=== PATIENT | male | born 1980 | race Caucasian/White ===

== ENCOUNTER 2023-05-04 13:03 | Emergency (ER) | payer OTHER, SELFPAY ==
[2023-05-04 13:04] VITALS: BP 174/113; PULSE 92; RESP 19; TEMP 36.6; O2SAT 98
--- NOTE | 2023-05-04 13:16 | ED.GENADULT ---
HPI - General Adult General Chief complaint: Unspecified Stated complaint: abcess Time Seen by Provider: 05/04/23 13:16 Source: patient Mode of arrival: ambulatory Limitations: no limitations History of Present Illness HPI narrative: 42 year old male presents to the Emergency Department complaining of redness and swelling to left buttock region. Onset several days ago. States he has always had what he thought was a spider bite to left buttock for past 2 years. Got worse past several days and painful. Onset (ago): day(s) (several) Location: buttocks (left) Pain Consistency: constant Relieving factors: none Exacerbating factors: other (palpation) Associated symptoms: denies other symptoms Related Data Allergies Allergy/AdvReac Type Severity Reaction Status Date / Time No Known Allergies Allergy Verified 05/04/23 13:14 Review of Systems Review of Systems: All systems reviewed & are unremarkable except as noted in HPI and below Constitutional: Constitutional: Reports as per HPI, Denies chills and Denies fever(s) Eyes: Eyes: Reports as per HPI ENT: Reports system reviewed and no additional complaints, except as documented Cardiovascular: Cardiovascular: Reports as per HPI Respiratory: Respiratory: Reports as per HPI Gastrointestinal: Gastrointestinal: Reports as per HPI Genitourinary: Genitourinary: Reports no additional male genitourinary complaints Musculoskeletal: Musculoskeletal: Reports no additional musculoskeletal complaints and Reports other (pain, redness to left buttock) Neurologic: Reports system reviewed and no additional complaints, except as documented Exam Const: General: cooperative, healthy appearing and no acute distress Nutritional Appearance: average body habitus Orientation/consciousness: oriented to person Limitations: no limitations HENMT: Head: normal to inspection Face/Nose/Sinus: Normal external nose present Face and sinus: normal facial exam Eyes: General: appearance normal, both eyes and all related structures EOM: EOMs intact bilaterally Neck: Neck: normal visual inspection Chest: Chest palpation & inspection: normal inspection of the chest Resp: Effort & Inspection: normal respiratory effort Cardio: Rate: regular rate Rhythm: regular rhythm GI: Inspection: normal to inspection Back/Spine/Pelvis: Back: no CVA tenderness Skin: General skin exam: erythema (left buttock with central fluctuance) Neuro: General: patient oriented x3 and gait normal Other: grossly normal Extrem: General: normal to inspection Course Course Emergency Course: 42 y/o male presents to the ED c/o redness, swelling, tenderness to left buttock. Onset several days ago. PE: erythema with induration and central fluctuance to left buttock Tx: I&D - large purulent drainage Rx and Instructions Vital Signs Vital signs: Vital Signs Temperature 36.6 C 05/04/23 13:04 Pulse Rate 92 05/04/23 13:04 Respiratory Rate 19 05/04/23 13:04 Blood Pressure 174/113 H 05/04/23 13:04 Pulse Oximetry 98 05/04/23 13:04 Oxygen Delivery Room Air 05/04/23 13:04 Temperature 36.6 C 05/04/23 13:04 Pulse Rate 92 05/04/23 13:04 Respiratory Rate 19 05/04/23 13:04 Blood Pressure 170/97 H 05/04/23 13:25 Pulse Oximetry 98 05/04/23 13:04 Oxygen Delivery Room Air 05/04/23 13:04 Procedures Abscess I/D left buttock: Date of Incision: 05/04/23 Time of Incision: 13:42 Side (if applicable): left Local Anesthetic: lidocaine 1% Amount of anesthesia used (mL): 3 Technique: incised with #11 blade Amount of fluid expressed (mL): 10 Packing used?: none I&D Results: Pus Medical Decision Making Vital Signs Vital Signs: Vital Signs Temperature 36.6 C 05/04/23 13:04 Pulse Rate 92 05/04/23 13:04 Respiratory Rate 19 05/04/23 13:04 Blood Pressure 174/113 H 05/04/23 13:04 Pulse Oximetry 98 05/04/23 1
[2023-05-04 13:25] VITALS: BP 170/97
[2023-05-04 14:02] VITALS: BP 165/82; PULSE 85; RESP 17; TEMP 36.6; O2SAT 99
--- NOTE | 2023-05-06 15:02 | PC.NURSE ---
PRELIMINARY WOUND CULTURE RESULTS: GRAM SATIN: MODERATE, WHITE BLOOD CELLS SEEN RARE, GRAM POSITIVE COCCI. TO AWAIT C&S PER DR COLON. NO ACTION NEEDED AT THIS TIME.
--- NOTE | 2023-05-07 12:52 | PC.NURSE ---
final woud culture reviewed. gram positive cocci present. treatment at er discharge is appropriate per dr pollock. no change in plan of care.
== END 2023-05-04 14:02 | disposition home or self-care (01) ==
LOC: CHSED 13:52
PROVIDERS: Emergency Provider Emergency Medicine
DX: L02.31 Cutaneous abscess of buttock (principal)
CPT/HCPCS: 10060; 87070; 87205; 99283